=== PATIENT | female | born 1995 | race Caucasian/White ===

== ENCOUNTER 2016-04-24 03:46 | Emergency (ER) | payer OTHER ==
[~2016-04-24] VITALS: Ht 162.6 cm; Wt 93.0 kg
[2016-04-24 03:51] VITALS: BP 137/71
--- NOTE | 2016-04-24 04:01 | NUR ---
PT TAKEN TO BED 4
--- NOTE | 2016-04-24 04:08 | NUR ---
PT PRESENT TO ER WITH C/O VAGINAL PAIN X 2DAYS AND PAIN IN URINATION WITH PINK COLOR URINE. DENIES ANY N/V/D & FEVER.
--- NOTE | 2016-04-24 04:16 | NUR ---
Dr. Vanegas evaluating patient at bedside.
[2016-04-24] MEDS ORDERED: PHENAZOPYRIDINE 100 MG TAB PO ONE (04:25)
[2016-04-24] MEDS ORDERED: SULFAMETH/TRIMETH DS 800/160MG 1 TAB PO ONE (04:25)
[2016-04-24 04:34] VITALS: BP 133/68
--- NOTE | 2016-04-24 04:35 | NUR ---
Patient discharged with v/s stable. Written and verbal after care instructions given and explained. Patient alert, oriented and verbalized understanding of instructions. Ambulatory with steady gait. All questions addressed prior to discharge. ID band removed. Patient advised to follow up with PMD. Rx of BACTRIM DS 800MG-160MG PO, PYRIDIUM 200MG PO given. Patient educated on indication of medication including possible reaction and side effects. Opportunity to ask questions provided and answered.
== END 2016-04-24 04:35 | disposition home or self-care (01) ==
LOC: MED 03:46
DX: N39.0 Urinary tract infection, site not specified (principal); R03.0 Elevated blood-pressure reading, without diagnosis of hypertension; J45.909 Unspecified asthma, uncomplicated; E11.9 Type 2 diabetes mellitus without complications

== ENCOUNTER 2016-05-07 02:30 | Emergency (ER) | payer OTHER ==
[~2016-05-07] VITALS: Ht 162.6 cm; Wt 90.7 kg
[2016-05-07 02:34] VITALS: BP 129/72
--- NOTE | 2016-05-07 02:40 | NUR ---
PT TAKEN TO BED 6
[2016-05-07] MEDS ORDERED: NACL 0.9% 1,000 ML IV SCH (02:44)
[2016-05-07] MEDS ORDERED: FAMOTIDINE 20 MG/2 ML VIAL IVP ONE (02:45)
[2016-05-07] MEDS ORDERED: ONDANSETRON 4 MG/2 ML VIAL IVP ONE ×2 (02:45→04:00)
[2016-05-07] MEDS ORDERED: HYDROmorphone 1 MG/ML AMP IVP ONE ×2 (02:45→03:35)
--- NOTE | 2016-05-07 02:57 | NUR ---
Dr. Can evaluating patient at bedside.
--- NOTE | 2016-05-07 03:16 | NUR ---
PATIENT PRESENTS TO ED WITH RUQ ABD PAIN [id number] . 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 DENIES DIARRHEA; SKIN IS PINK/WARM/DRY; AAOX4 WITH EVEN AND STEADY GAIT; LUNGS CLEAR BL; HR EVEN AND REGULAR; PT DENIES ANY FEVER, CP, SOB, OR COUGH AT THIS TIME; PATIENT STATES PAIN OF 8/10 AT THIS TIME; VSS; PATIENT POSITIONED FOR COMFORT; HOB ELEVATED; BEDRAILS UP X2; BED DOWN. ER MD MADE AWARE OF PT STATUS.
--- NOTE | 2016-05-07 03:46 | NUR ---
Ultrasound at bedside.
[2016-05-07 05:51] VITALS: BP 129/72
--- NOTE | 2016-05-07 05:52 | NUR ---
Patient discharged with v/s stable. Written and verbal after care instructions given and explained. Patient alert, oriented and verbalized understanding of instructions. Ambulatory with steady gait. All questions addressed prior to discharge. ID band removed. Patient advised to follow up with PMD. Rx of NORCO AND ZOFRAN given. Patient educated on indication of medication including possible reaction and side effects. Opportunity to ask questions provided and answered.
== END 2016-05-07 05:52 | disposition home or self-care (01) ==
LOC: MED 02:30
DX: K80.70 Calculus of gallbladder and bile duct without cholecystitis without obstruction (principal); J45.909 Unspecified asthma, uncomplicated; E11.9 Type 2 diabetes mellitus without complications; K21.9 Gastro-esophageal reflux disease without esophagitis; Z88.6 Allergy status to analgesic agent
CPT/HCPCS: 36415; 76700; 80053; 81001; 81025; 82150; 83690; 85025; 96361; 96374; 96375; 96376; 99285; J1170; J2405; J3490; J7030; Q0092